=== PATIENT | female | born 1990 | race Caucasian/White ===

== ENCOUNTER → 2016-12-25 | Outpatient (CLI) | payer OTHER ==
--- NOTE | 2016-12-25 15:21 | DIREP ---
PROCEDURE:US OB 1ST TRI TRANS ABD COMPARISON:None. INDICATIONS:PCOS, SP AB 12-16-16 TECHNIQUE:Transabdominal and transvaginal pelvic ultrasound examinations were performed. FINDINGS: CUL-DE-SAC:No free fluid.. UTERUS: Normal myometrium. Retroverted. No intrauterine fluid collection or gestational sac. OTHER:Negative. UTERUS:7.9 x 5.0 x 4.2 cm ENDOMETRIUM THICKNESS:0.4 cm LEFT OVARY:2.4 x 1.9 x 1.2 cm no cysts or masses. RIGHT OVARY:4.2 x 2.4 x 2.2 cm, no cysts or masses CONCLUSION:History of spontaneous AB with no uterine or endometrial abnormality. No retained products detected. No gestational sac. No free fluid in the cul-de-sac. DICTATED BY: CURT PHYSICIAN ON 12/25/2016 AT 02:15 PM ELECTRONICALLY SIGNED BY: LAURYN LARA MD ON 12/25/2016 AT 02:20 PM AC
== END | disposition home or self-care (01) ==
LOC: RAD 12:16
PROVIDERS: ATTEND Hospitalist
DX: O03.4 Incomplete spontaneous abortion without complication (principal)
CPT/HCPCS: 76801; 76817